=== PATIENT | female | born 1980 | race Caucasian/White ===

== ENCOUNTER 2020-06-20 11:35 | Outpatient (REF) | payer OTHER, SELFPAY | END 2020-06-20 11:36 | disposition home or self-care (01) | LOC: HO.LNP 11:35 | PROVIDERS: Visit Provider Hospitalist | DX: R30.0 Dysuria (principal) | CPT/HCPCS: 87086; 87088; 87186 ==

== ENCOUNTER → 2020-06-27 10:41 | Outpatient (BNVA) | payer OTHER, SELFPAY | PROVIDERS: PCP Internal Medicine; Visit Provider Nurse Practitioner ==

== ENCOUNTER 2020-08-15 10:37 | Outpatient (REF) | payer OTHER, SELFPAY ==
[2020-08-15 11:58] LABS: COVID-19 Test Negative (Negative); IDNOW Serial# 55D5AD1C
== END 2020-08-15 10:38 | disposition home or self-care (01) ==
LOC: HO.LAB 10:37
PROVIDERS: Visit Provider Internal Medicine
DX: Z20.822 Contact with and (suspected) exposure to COVID-19 (principal)
CPT/HCPCS: 36415; 87635; C9803

== ENCOUNTER 2021-01-19 16:31 | Outpatient (REF) | payer OTHER, SELFPAY | END 2021-01-19 16:32 | disposition home or self-care (01) | LOC: HO.LNP 16:31 | PROVIDERS: Visit Provider Internal Medicine | DX: Z20.822 Contact with and (suspected) exposure to COVID-19 (principal); J06.9 Acute upper respiratory infection, unspecified | CPT/HCPCS: U0003; U0005 ==

== ENCOUNTER 2021-06-02 14:21 | Outpatient (REF) | payer OTHER, SELFPAY ==
[2021-06-05 10:46] LABS: HPV mRNA E6/E7 rflx Not Detected (Not Detected)
== END 2021-06-02 14:22 | disposition home or self-care (01) ==
LOC: HO.LNP 14:21
PROVIDERS: Visit Provider Internal Medicine
DX: Z12.4 Encounter for screening for malignant neoplasm of cervix (principal); Z11.51 Encounter for screening for human papillomavirus (HPV)
CPT/HCPCS: 87624; 88142

== ENCOUNTER 2021-06-29 09:01 | Outpatient (REF) | payer OTHER, SELFPAY ==
[2021-06-29 11:24] LABS: MANUAL DIFF FLAG NO
[2021-06-29 11:33] LABS: Basophils Percent Auto 0.5 % (0-2); Eosinophils Absolute Auto 0.2 X10*3/uL (0.0-0.4); Hematocrit 41.5 % (37.0-47.0); Hemoglobin 14.4 g/dl (12.0-16.0); Imm Gran Abs Auto 0.01 X10*3/uL (0.00-0.03); Imm Gran Pct Auto 0.2 % (0.0-0.4); Lymphocytes Absolute Auto 1.8 X10*3/uL (1.2-4.9); Lymphocytes Percent Auto 28.8 % (20-40); Mean Corpuscular HGB Conc 34.7 g/dl (31.0-35.0); Mean Corpuscular Hemoglobin 31.9 pg (27.0-33.0); Mean Corpuscular Volume 91.8 fL (80.0-98.0); Mean Platelet Volume 10.2 fL (9.4-12.3); Monocytes Absolute Auto 0.4 X10*3/uL (0.1-1.2); Monocytes Percent Auto 6.7 % (2-11); Neutrophils Absolute Auto 3.8 x10*3/uL (2.0-8.3); Neutrophils Percent Auto 60.8 % (45-73); Platelet Count 271 X10*3/uL (160-400); Red Blood Count 4.52 X10*6/uL (4.20-5.50); Red Cell Distribution Width 12.1 % (11.0-16.0); White Blood Count 6.2 X10*3/uL (4.8-10.8)
[2021-06-29 12:15] LABS: TSH reflex Free T4 2.62 uIU/mL (0.32-4.0); Vitamin D 25-OH Total 28.2 ng/mL (>30)
[2021-06-29 12:19] LABS: Alanine Aminotransferase 14 U/L (0-31); Albumin Level 4.4 g/dL (3.5-5.0); Alkaline Phosphatase 55 U/L (39-117); Anion Gap 13 (12-20); Aspartate Amino Transferase 16 U/L (5-31); Bilirubin Total 0.6 mg/dL (0.0-1.0); Blood Urea Nitrogen 11 mg/dL (9-16); Calcium 9.6 mg/dL (8.4-10.2); Carbon Dioxide 26 mmol/L (22-29); Chloride 106 mmol/L (96-108); Cholesterol 199 mg/dL; Estimated Glomerular Filt Rate > 60; Glucose Fasting 87 mg/dL (60-99); HDL Cholesterol 53 mg/dL; LDL Cholesterol Calculated 123 mg/dl; Potassium 4.1 mmol/L (3.3-5.1); Sodium 141 mmol/L (135-145); Total Protein 7.3 g/dL (6.5-8.0); Triglycerides 117 mg/dL
[2021-06-29 13:24] LABS: HCG Quantitative < 2 mIU/mL
== END 2021-06-29 09:02 | disposition home or self-care (01) ==
LOC: HO.LAB 09:01
PROVIDERS: PCP Internal Medicine; Visit Provider Internal Medicine
DX: Z00.01 Encounter for general adult medical examination with abnormal findings (principal); E66.9 Obesity, unspecified; N92.6 Irregular menstruation, unspecified
CPT/HCPCS: 36415; 80053; 80061; 82306; 84443; 84702; 85025

== ENCOUNTER → 2021-08-25 07:48 | Outpatient (BNVA) | payer OTHER, SELFPAY | PROVIDERS: PCP Internal Medicine; Visit Provider Nurse Practitioner | DX: Z01.818 Encounter for other preprocedural examination (principal); Z83.71 Family history of colonic polyps | CPT/HCPCS: 99202 ==

== ENCOUNTER 2021-12-22 08:22 | Outpatient (REF) | payer OTHER, SELFPAY ==
--- NOTE | ~2021-12-22 | MM_ITS ---
EXAMINATION: MM SCREENING DIGITAL BREAST TOMOSYNTHESIS, BILATERAL CLINICAL INFORMATION: Screening. Asymptomatic. The lifetime risk of breast cancer based on the Tyrer-Cuzick Model is 12%. COMPARISON: Mammography: None TECHNIQUE: Digital breast tomosynthesis is performed in both the craniocaudal and mediolateral oblique views along with computer-aided detection (CAD). Synthesized 2D images are generated from the tomosynthesis. FINDINGS: The breasts are heterogeneously dense, which may obscure small masses (ACR BI-RADS breast composition Category c). There are no significant masses, abnormal calcifications, or other abnormalities. There is a region of density superior aspect on mediolateral oblique left breast but which is seen to represent superimposition of fibroglandular tissue on mechelle symphysis views. MM/MM tomosynthesis screening BI IMPRESSION: No specific findings to suggest malignancy. ASSESSMENT: BI-RADS 1: Negative RECOMMENDATION: Routine annual mammography screening. This patient's information was entered into a reminder system with a target due date for their next mammogram.
== END 2021-12-22 08:23 | disposition home or self-care (01) ==
LOC: HO.MAMMO 08:22
PROVIDERS: PCP Internal Medicine; Visit Provider Internal Medicine
DX: Z12.31 Encounter for screening mammogram for malignant neoplasm of breast (principal)
CPT/HCPCS: 77063; 77067

== ENCOUNTER 2022-05-17 18:09 | Outpatient (REF) | payer OTHER, SELFPAY ==
[2022-05-17 18:52] LABS: Influenza A PCR NEGATIVE (Negative); Influenza B PCR NEGATIVE (Negative); Resp Syncy Virus RNA Qual PCR NEGATIVE (Negative); SARS COV2 PCR INHOUSE NEGATIVE (Negative)
== END 2022-05-17 18:10 | disposition home or self-care (01) ==
LOC: HO.LNP 18:09
PROVIDERS: Visit Provider Internal Medicine
DX: R09.89 Other specified symptoms and signs involving the circulatory and respiratory systems (principal); Z20.822 Contact with and (suspected) exposure to COVID-19
CPT/HCPCS: 0241U

== ENCOUNTER 2022-08-16 21:08 | Emergency (ER) | payer OTHER, SELFPAY ==
[2022-08-16 21:23] VITALS: BP 152/68; PULSE 70; RESP 18; TEMP 36.8; O2SAT 98; BMI 34.5
[2022-08-16 21:40] VITALS: BP 132/63; PULSE 67; RESP 16; TEMP 36.7; O2SAT 98
--- NOTE | 2022-08-16 21:46 | PC.NURSE ---
Patent is alert and oriented x3. She is able to make her needs known. Patient complaints of frontal/occipital headache that started this morning. Patient describes pain as sharp, pressure and rates it 7-10/10 on 01-10 pain scale. Patient noticed redness in her both eyes for approximately 6-7 weeks. Patient reports occasional dizziness and nausea. VSS. Call terry placed within patient's reach. Light dimmed in patient's room to promote comfort. Patient is awaiting o be seen by ED provider.
[2022-08-16 22:04] VITALS: BP 119/97; PULSE 65; RESP 12; TEMP 36.8; O2SAT 96
--- NOTE | 2022-08-16 22:17 | ED_ITS ---
HPI - Headache General Chief Complaint: Headache Stated Complaint: red eyes/headache Time Seen by Provider: 08/16/22 22:07 Source: patient Mode of arrival: ambulatory Limitations: no limitations History of Present Illness HPI Narrative: Patient wear contact lenses noticed for last 3 weeks redness of the eyes with slight burning feeling no eye discharge. Also complaining of headache which is mild in the normal vision ferrari no fever or chills had last on pelvic examination last year which was Related Data Previous Rx's Medication Instructions Recorded peg 3350-electrolytes 236 240 ml PO Q10M 1 day #4,000 mL 08/25/21 gram-22.74 gram-6.74 gram-5.86 gram solution (Golytely) prednisone 20 mg tablet 60 mg PO DAILY #9 tabs 05/17/22 olopatadine 0.1 % eye drops 1 drp ophthalmic (eye) BID #5 mL 08/16/22 (Pataday Twice Daily Relief) Allergies Allergy/AdvReac Type Severity Reaction Status Date / Time Sulfa (Sulfonamide Allergy Unknown INFLAMED Verified 08/16/22 21:27 Antibiotics) EYES W/ [SULFA (SULFONAMIDE EYE DROPS ANTIBIOTICS)] , eye swelling Review of Systems Review of Systems: Yes all other systems are reviewed and are negative [facility] Past Medical History Medical History Anxiety disorder Family history of familial adenomatous polyposis Family history of pancreatic cancer Obesity Surgical History History of section Family History Family History Father Hyperlipidemia HTN (hypertension) Mother Pancreatitis Adenomatous colon polyp Paternal Grandfather Hyperlipidemia HTN (hypertension) Paternal Grandmother Pancreatic cancer Sister No problems noted. Son No problems noted. Daughter No problems noted. Maternal Grandmother Adenomatous colon polyp Paternal Aunt No problems noted. Maternal Aunt Adenomatous colon polyp Social History Social History Household Members: Spouse and Children Housing: House Are you a primary primary care physician to a significant other at home: No Do you presently have visiting nurse or other home services: No Alcohol intake: current Alcohol intake frequency: holidays/special occasions only Alcohol type: wine Patient Tobacco Use Status: Never used Tobacco Smoked in Last 30 Days: No e-Cigarette/Vaping Use: Never Used Use of substances other than those prescribed or required for medical reasons: No Advance Directives: No Advance Directives Information Provided: No service: No Current occupational status: employed 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 Oriented X3. No acute distress. Eyes: PERRLA, No Nystagmus funduscopy normal, anterior chamber normal cornea normal fluorescin uptake negative slight redness of the palpebral conjunctiva bilateral no discharge IOP right eye 16 left eye 15 ENT: Pharynx normal. Oral Mucosa moist Neck: Normal inspection. Neck supple. Temporal artery nontender CVS: Normal heart rate and rhythm. Pulses normal. Respiratory: No respiratory distress. Equal air entry bilateral, no wheezing/rales/rhonchi Abdomen: Soft and nontender. Bowel sounds are present, no mass palpable, no CVA tenderness Skin: Skin warm and dry. Normal skin color. Normal skin turgor. Extremities: No lower extremity edema. No calf tenderness Neuro: Oriented X 3. No motor deficit. No sensory deficit.No cerebellar signs , cranial nerves II-XII intact Medical Decision Making Differential Diagnosis Glaucoma/conjunctivitis/migraine headache Discharge Plan Discharge Clinical Impression: Allergic conjunctivitis of both eyes Patient Disposition: Home, Self-Care Instructions: Conjunctivitis (ED) Additional Instructions: Likely have allergic conjunctivitis Eyedrops as advised Avoid using contact lenses still healed completely Prescriptions: New olopatadine [Pataday Twice Daily Relief] 0.1 % drops 1 drp ophthalmic (eye) BID Qty: 5 0RF Rx Instructions: separate doses by at least 6-8 hours No Action prednisone 20 mg tablet 60 mg PO DAILY Qty: 9 0RF peg 3350-electrolytes [Golytely] 236-22.74-6.74 -5.86 gram recon soln 240 ml PO Q10M 1 Days Qty: 4000 0RF Rx Instructions: until fecal effluent is clear; do not exceed a total volume of 2,000 mL
--- NOTE | 2022-08-16 23:13 | PC.NURSE ---
Reviewed discharge instruction with pt, pt verbalized understanding, Notified RN Rhianna.
[2022-08-16 23:14] VITALS: BP 103/57; PULSE 60
== END 2022-08-16 23:16 | disposition home or self-care (01) ==
PROVIDERS: Emergency Provider Internal Medicine; PCP Internal Medicine
DX: H10.13 Acute atopic conjunctivitis, bilateral (principal); R51.9 Headache, unspecified
CPT/HCPCS: 99283; 99284

== ENCOUNTER 2022-08-26 14:46 | Outpatient (AMB) | payer OTHER, SELFPAY ==
--- NOTE | 2022-08-26 14:55 | A.OFFPC_ITS ---
<Statement entered by Sallie Dueñas MD - 06/03/25 00:13> This note has been administratively?closed. Vital Signs 08/26/22 14:56 Height 5 ft 3 in Weight 202 lb 8 oz BMI 35.9 BP 116/68 Blood Pressure Location Rt brachial Position Sitting Pulse 79 Pulse Source Pulse Oximeter Pulse Oximetry (%) 98 Oxygen Delivery Method Room Air Intake Visit Reasons: red blood shot eyes Intake Note: Pt is here for red eyes, started 2 months ago: OD 20/15, OS 20/20, OU 20/15 with corrective lens Allergies Sulfa (Sulfonamide Antibiotics) (SULFA (SULFONAMIDE ANTIBIOTICS)) Allergy (Unknown, Verified 02/14/25 15:21) INFLAMED EYES W/ EYE DROPS , eye swelling Medication List - Last Reconciled 08/26/22 by Sallie Dueñas MD olopatadine 0.1% (Pataday Twice Daily Relief) 1 drp ophthalmic (eye) BID peg 3350-electrolytes 236-22.74-6.74 -5.86 gram (Golytely) 240 mL PO Q10M 1 day Tobacco use date assessed: 08/26/22 [facility] Medical History (Updated 02/14/25 @ 15:33 by Sallie Dueñas MD) Heterogeneously dense tissue of both breasts on mammography Obesity (BMI 35.0-39.9 without comorbidity) Family history of thyroid disease Family history of familial adenomatous polyposis Family history of pancreatic cancer Anxiety disorder Surgical History Hx of colonoscopy History of section Family History Father Hyperlipidemia HTN (hypertension) Mother Pancreatitis Adenomatous colon polyp Paternal Grandfather Hyperlipidemia HTN (hypertension) Paternal Grandmother Pancreatic cancer Sister No problems noted. Son No problems noted. Daughter No problems noted. 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 1. Little interest or pleasure in doing things: not at all 2. Feeling down, depressed, or hopeless: not at all 3. Trouble falling or staying asleep, or sleeping too much: not at all 4. Feeling tired or having little energy: not at all 5. Poor appetite or overeating: more than half the days 6. Feeling bad about yourself - or that you are a failure or have let yourself or your family down: not at all 7. Trouble concentrating on things, such as reading the newspaper or watching television: more than half the days 8. Moving or speaking so slowly that other people could have noticed. Or the opposite - being so fidgety or restless that you have been moving around a lot more than usual: not at all 9. Thoughts that you would be better off or of hurting yourself in some way: not at all Total score: 4 Source: Developed by Drs. James Rodriguez, Farheen Christine, Antoine Curran and colleagues, with an educational jorge from [employer]. Thrive Questionnaire Date Thrive assessed: 08/26/22 I am a: Patient What is your living situation today?: I have a steady place to live Within the past 12 months, did the food you bought not last and you didn't have the money to get more?: Never true Within the past 12 months, did you worry whether your food would run out before you got money to buy more?: Never true Do you have trouble paying for medicines?: No Do you have trouble getting transportation to medical appointments?: No Do you have trouble paying your heating and electricity bill?: No Do you have trouble taking care of your child, family member or friend?: No Do you have trouble with day-to-day activities such as bathing, preparing meals, shopping, managing finances, etc.?: No Are you currently unemployed and looking for a job?: No Are you interested in more education?: No AUDIT C Alcohol Use Questionnaire (AUDIT-C) 1. How often do you have a drink containing alcohol?: Monthly or less 2. How many drinks containing alcohol do you have on a typical day when you are drinking?: 1 or 2 3. How often do you have six or more drinks on one occasion?: Never Total Score: 1 DUARTE-7 AMB Questionnaire DUARTE-7 Date DUARTE - 7 assessed: 08/26/22 Feeling nervous, anxious, or on edge: 0 = Not at all Not being able to stop or control worryin = Not at all Worrying too much about different things: 0 = Not at all Trouble relaxin = Not at all Being so restless that it is hard to sit still: 0 = Not at all Becoming easily annoyed or irritable: 0 = Not at all Feeling afraid as if something awful might happen: 0 = Not at all Total DUARTE-7 score (0-4 normal; 5-9 mild; 10-14 moderate; 15-21 severe): 0 Source: Developed by Drs. James Rodriguez, Farheen Christine, Antoine Curran and colleagues, with an educational jorge from [employer]. Physical exam (Primary Care) Vital Signs: Last Vital Signs Pulse 79 08/26/22 14:56 BP 116/68 08/26/22 14:56 Pulse Ox 98 08/26/22 14:56 Oxygen Delivery Method Room Air 08/26/22 14:56 BMI result Body Mass Index 35.9 Tobacco/Smoking Status: Tobacco use Status Tobacco use date assessed 08/26/22 08/26/22 15:01 Patient Tobacco Use Status Never used Tobacco 08/26/22 15:01 e-Cigarette/Vaping Use Never Used 08/26/22 15:01 PHQ-9: PHQ-9 Score PHQ-9: Total score 4 08/26/22 15:35 Thrive Assessment: Date of Thrive Assessment Date Thrive assessed 08/26/22 08/26/22 15:01 Coding Level of Care Code Admin Sign Off/No Billing Diagnoses Redness of eye H57.89 Family history of thyroid disease Z83.49
[2022-08-26 14:56] VITALS: BP 116/68; PULSE 79; O2SAT 98; BMI 35.9
== END 2022-08-26 15:57 | disposition home or self-care (01) ==
LOC: HO.HMGC 14:46
PROVIDERS: PCP Internal Medicine; Visit Provider Internal Medicine
DX: H57.89 Other specified disorders of eye and adnexa (principal); Z83.49 Family history of other endocrine, nutritional and metabolic diseases
CPT/HCPCS: 99499

== ENCOUNTER 2022-10-29 08:49 | Day surgery (SDC) | payer OTHER, SELFPAY ==
[2022-10-27 09:53] VITALS: BMI 35.9
--- NOTE | 2022-10-28 10:22 | HO.ANESPROP2 ---
HPI - Anesthesia Eval Consult details Narrative: 41yo F for Colonoscopy PMFSH Active Problems Active Problems: All Active Problems (Updated 08/26/22 @ 15:34 by Sallie Dueñas MD) Redness of eye (Acute) Family history of thyroid disease (Acute) Uvulitis (Acute) Family history of familial adenomatous polyposis (Acute) Family history of pancreatic cancer (Acute) Obesity (Acute) Past Medical History Medical History Anxiety disorder Family history of familial adenomatous polyposis Family history of pancreatic cancer Family history of thyroid disease Obesity Redness of eye Family History Family History Father Hyperlipidemia HTN (hypertension) Mother Pancreatitis Adenomatous colon polyp Paternal Grandfather Hyperlipidemia HTN (hypertension) Paternal Grandmother Pancreatic cancer Sister No problems noted. Son No problems noted. Daughter No problems noted. Maternal Grandmother Adenomatous colon polyp Paternal Aunt No problems noted. 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
--- NOTE | 2022-10-29 09:04 | HO.ANESPROP2 ---
[facility] Active Problems Active Problems: All Active Problems (Updated 08/26/22 @ 15:34 by Sallie Dueñas MD) Redness of eye (Acute) Family history of thyroid disease (Acute) Uvulitis (Acute) Family history of familial adenomatous polyposis (Acute) Family history of pancreatic cancer (Acute) Obesity (Acute) Past Medical History Medical History Anxiety disorder Family history of familial adenomatous polyposis Family history of pancreatic cancer Family history of thyroid disease Obesity Redness of eye Family History Family History Father Hyperlipidemia HTN (hypertension) Mother Pancreatitis Adenomatous colon polyp Paternal Grandfather Hyperlipidemia HTN (hypertension) Paternal Grandmother Pancreatic cancer Sister No problems noted. Son No problems noted. Daughter No problems noted. Maternal Grandmother Adenomatous colon polyp Paternal Aunt No problems noted. Maternal Aunt Adenomatous colon polyp Family history of problems with anesthesia: No Surgical History Surgical History History of section History of Problems with Anesthesia: No Social History Social History Household Members: Spouse and Children Housing: House Are you a primary medication care manager to a significant other at home: No Do you presently have visiting nurse or other home services: No Alcohol intake: current Alcohol intake frequency: holidays/special occasions only Alcohol type: wine Patient Tobacco Use Status: Never used Tobacco e-Cigarette/Vaping Use: Never Used service: No Current occupational status: employed 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 Cognitive needs: No Hearing needs: No Vision needs: Yes Meds Allergies Allergy/AdvReac Type Severity Reaction Status Date / Time Sulfa (Sulfonamide Allergy Unknown INFLAMED Verified 08/26/22 15:14 Antibiotics) EYES W/ [SULFA (SULFONAMIDE EYE DROPS ANTIBIOTICS)] , eye swelling Exam Exam Date and Time: October 29, 2022 0904 Height,Weight and Vital Signs: Height 5 ft 3 in Weight 91.852 kg Airway Mallampati Class: II TM Dist: >3cm Neck ROM: Full Lungs: CTA Assessment and Plan Final Anesthetic Review Family History of Problems with Anesthesia: No History of Problems with Anesthesia: No NPO: Yes Final Preanesthetic Review: Meds/Allgs Chart Reviewed, Consent Obtained/Reviewed and Anes Risks/Benef Reviewed Patient Risk: Low Procedure Risk: Low Anesthetic Plan Anesthetic Plan: MAC: Disposition: Standard PACU
[2022-10-29 09:34] VITALS: BP 134/77; PULSE 71; RESP 16; TEMP 36.1; O2SAT 98; BMI 35.8
[2022-10-29 09:36] VITALS: BMI 35.8
[2022-10-29 09:39] LABS: UPreg QC Valid YES; Urine Pregnancy NEGATIVE (NEGATIVE)
--- NOTE | 2022-10-29 09:43 | MHC.SHP ---
Pre-Procedural Eval Section A Date of Service: 10/29/22 The patient is an INPATIENT: No The History & Physical has been completed within 30 days and I have reviewed it.: No Section B Chief Complaint: screening, family hx of colon polyps Relevant Family History (Specify if Yes): Yes Relevant Social History: None Present Medications: see Short Stay Collaborative assessment Medical History: Significant History (Anxiety disorder Family history of familial adenomatous polyposis Family history of pancreatic cancer Obesity) History of Previous Operations: Relevant previous surgery/procedure and date(s) (hx of C section) Allergies: Allergies Allergy/AdvReac Type Severity Reaction Status Date / Time Sulfa (Sulfonamide Allergy Unknown INFLAMED Verified 08/26/22 15:14 Antibiotics) EYES W/ [SULFA (SULFONAMIDE EYE DROPS ANTIBIOTICS)] , eye swelling Review of Systems Sugical H&P ROS: Negative: Constitution, Cardiovascular, Respiratory and Gastrointestinal Exam Surgical H&P Exam: Normal: Heart, Normal: Lungs, Normal: Extremities and Normal: Abdomen Plan Diagnosis/Plan: Unchanged I have reviewed the history and physical and performed a pertinent physical examination on my patient. No changes have occurred unless specified. Time Spent With Patient Time: Total time managing care of this patient today ____ minutes.
--- NOTE | 2022-10-29 09:47 | W.PM.OPN ---
Operative Note Operative Note Date of Service: 10/29/22 Narrative: COLONOSCOPY TILL CECUM WITH BIOPSIES Pre-op diagnosis: Colon cancer screening, family history of colon polyps Post-op diagnosis:? diverticulosis, hemorrhoids, Colon nodules. Endoscopist:? Hesham Etienne MD Anesthesia:?MAC Consent: Indications for the procedure and potential complications of bleeding, perforation, reaction to medications and missed diagnosis were discussed with the patient and informed consent was obtained. Instrument: Olympus PCF H 190 L variable stiffness pediatric colonoscope Monitoring: Vital signs and clinical assessment, intermittent blood pressure monitoring, continuous EKG monitoring, Pulse oximetry and Carbon Dioxide monitoring were done throughout the procedure. Please see anesthesia flowsheet. Colon withdrawl time was 13 minutes. Procedure: The patient was placed in the left lateral decubitis position and pre-procedure medications were administered. After a digital rectal examination of the ano-rectum, the video colonoscope was inserted into the rectum and advanced through the colon to the cecum. The colonoscope was slowly withdrawn in a retrograde panoramic fashion and the colon mucosa was carefully examined including a retroflexed view of the rectum. Findings and interventions are described below. Procedure Difficulty: Without difficulty Findings: Terminal Ileum: Not evaluated Cecum: Normal Ascending Colon: Two 7-8 mm benign appearing nodules with central calcifications - biopsied. Transverse Colon: A 7-8 mm nodule with cetral calcification - biopsied. Descending Colon: Normal Sigmoid Colon: Moderate diverticulosis Rectum: Normal Ano-rectum: Small internal hemorrhoids Colon preparation: Good after some irrigation Impression and Post Procedure Diagnosis: Colonoscopy Findings: No polyps were detected Three small benign appearing nodules with central calcifications - biopsied Moderate diverticulosis seen in the sigmoid colon Small hemorrhoids on retroflexed exam. Plan: Await pathology results Patient has an appointment on 11/10/22 in the [facility] with Kalli Lang NP. Repeat Colonoscopy interval based on path results - in 5 years due to family history of colon polyps. Above findings were reviewed with the patient and diverticulosis handouts was given in the discharge area
[2022-10-29] MEDS: Lactated Ringers 1,000 ML 100 ML IVCONT (09:58)
[2022-10-29 10:30] VITALS: BP 92/51; PULSE 71; RESP 16; TEMP 36.2; O2SAT 95
[2022-10-29 10:44] VITALS: BP 109/55; PULSE 74; RESP 16; O2SAT 99
[2022-10-29 10:59] VITALS: BP 126/73; PULSE 71; RESP 20; TEMP 37.2; O2SAT 98
--- NOTE | 2022-10-29 13:07 | HO.POSTANES ---
Post Anesthesia Evaluation Post Anesthesia Evaluation Date of Service: 10/29/22 Vital Signs: Vital Signs Temp Pulse Resp BP Pulse Ox O2 Del Method 10/29/22 10:59 99.0 F 71 20 126/73 98 Room Air 10/29/22 10:44 74 16 109/55 L 99 Room Air 10/29/22 10:30 97.2 F 71 16 92/51 L 95 Room Air 10/29/22 09:34 97 F 71 16 134/77 98 Room Air Anesthesia: Monitored Mental Status: Awake Pain Control: Satisfactory Nausea/Vomiting: None Hydration: Adequate Anesthesia-Related Issues: No Anes. Related Issues
== END 2022-10-29 11:15 | disposition home or self-care (01) ==
PROVIDERS: Nurse Practitioner; PCP Internal Medicine; Visit Provider Internal Medicine Gastroenterology
PROC: 0DJD8ZZ Inspection of Lower Intestinal Tract, Via Natural or Artificial Opening Endoscopic (ICD-10-PCS; CPT 45378; principal; 2022-10-29 09:50)
DX: Z12.11 Encounter for screening for malignant neoplasm of colon (principal); Z83.71 Family history of colonic polyps; K63.89 Other specified diseases of intestine; K57.30 Diverticulosis of large intestine without perforation or abscess without bleeding; K64.8 Other hemorrhoids; E66.9 Obesity, unspecified; Z68.34 Body mass index [BMI] 34.0-34.9, adult; Z80.0 Family history of malignant neoplasm of digestive organs; F41.1 Generalized anxiety disorder; Z88.2 Allergy status to sulfonamides
CPT/HCPCS: 45380; 81025; 88305

== ENCOUNTER 2022-11-10 08:21 | Outpatient (AMB) | payer OTHER, SELFPAY ==
--- NOTE | 2022-11-10 08:20 | A.OFFVIS_ITS ---
Intake Vital Signs 11/10/22 08:24 Height 5 ft 3 in Weight 201 lb 15.095 oz BMI 35.8 Blood Pressure Location Lt brachial Position Sitting Intake Visit Reasons: S/p colo-[place] Intake Note: Ann presents in office as a est.patient for a post-op for COLO PT CC: pt reports having no concerns pt denies any other GI Issues Child Caregiver Required: No Accompanied by: Self / Same As Patient Allergies Sulfa (Sulfonamide Antibiotics) [SULFA (SULFONAMIDE ANTIBIOTICS)] Allergy (Unknown, Verified 11/10/22 08:25) INFLAMED EYES W/ EYE DROPS , eye swelling HPI S/p colo-[place] HPI Details Assessment & Plan (1) Family history of familial adenomatous polyposis: ?Code(s): Z83.71 - Family history of colonic polyps ?Plan: This is her first colonoscopy. She has an intermittent feels a fullness in the LLQ no other problems and not upper Gi problems.? This prompts Education about the sigmoid colon and what could be causing this including so Education about diverticulitis and alarm signs and symptoms that would cause her to be concerned about this.? Otherwise this is probably just normal physiology with things backing up a little bit around the curve the nature of the sigmoid. She denies prior problems with anesthesia or sedation No ID problems. She denies any cardiac or respiratory problems. She has a family history mother and maternal aunts having polyps prior to age 40. ? ? ? Medications: New peg 3350-electroly miguelina [id number] -5.86 gram (Golyt erick) ?? until feca l effluent is annie r; do not exceed a total volume of 2 ,000 mL 240 mL? PO Q10M 1 day 4,000 mL 0RF Z12.11 - Encounter for screening for malignant neoplas m of colon ? COLONOSCOPY 10/29/22 Findings: Terminal Ileum: Not evaluated Cecum:? Normal Ascending Colon:? Two 7-8 mm benign appearing nodules with central calcifications - biopsied. Transverse Colon:? A 7-8 mm nodule with cetral calcification - biopsied. Descending Colon:? Normal Sigmoid Colon:? Moderate diverticulosis Rectum:? Normal Ano-rectum:? Small internal hemorrhoids Colon preparation:? Good after some irrigation Impression and Post Procedure Diagnosis: Colonoscopy Findings: No polyps were detected Three small benign appearing nodules with central calcifications - biopsied Moderate diverticulosis seen in the sigmoid colon Small hemorrhoids on retroflexed exam. Plan: Await pathology results Patient has an appointment on 11/10/22 in the GI Clinic with? Kalli Lang NP. Repeat Colonoscopy interval based on path results - in 5 years due to family history of colon polyps. BIOPSY Received: 10/29/22 Diagnosis A.? Colon, ascending, nodules, biopsy:? Colonic mucosa with lymphoid aggregates and submucosal adipose tissue; negative for adenomatous dysplasia. B.? Colon, transverse, nodule, biopsy:? Colonic mucosa with no specific change; negative for adenomatous dysplasia.? TODAY'S VISIT The procedure should be repeated in 5 years due to the family history of colon cancer. The procedure was well tolerated. The results were explained and the patient is agreeable to the follow-up interval as stated. The bowel pattern has returned to normal. Education was provided to tell any 1st degree relatives about their findings to be sure that they are screened by age 45. Educated that they will be put on a recall list when it is time for their repeat scope but should they move out of state or away from the hospital they will need to remember along with their primary to repeat the procedure in a timely fashion to avoid any adverse complications. [facility] Medical History Anxiety disorder Family history of familial adenomatous polyposis Family history of pancreatic cancer Family history of thyroid disease Obesity Redness of eye Surgical History History of section Hx of colonoscopy Family History Father Hyperlipidemia HTN (hypertension) Mother Pancreatitis Adenomatous colon polyp Paternal Grandfather Hyperlipidemia HTN (hypertension) Paternal Grandmother Pancreatic cancer Sister No problems noted. Son No problems noted. Daughter No problems noted. Maternal Grandmother Adenomatous colon polyp Paternal Aunt No problems noted. 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 Cognitive needs: No Hearing needs: No Vision needs: Yes Review of Systems Const Denies fatigue, Denies fever(s), Denies night sweats, Denies poor appetite and Denies weight loss Eyes Details: glasses Reports requires corrective lenses ENT Reports Normal hearing present, Denies dental pain, Denies dysphagia, Denies hearing loss, Denies mouth pain, Denies odynophagia, Denies throat swelling, Denies tongue swelling and Reports other (Dentition adequate) Card Reports no additional complaints Resp Reports no additional complaints GI Denies abdominal pain, Denies melena, Denies bloating, Denies hematochezia, Denies constipation, Denies GI cramping, Denies dysphagia, Denies excessive flatus, Denies early satiety, Denies heartburn, Denies diarrhea, Denies nausea, Denies odynophagia, Denies vomiting and Denies hematemesis Skin/Breast Denies pruritus, Denies lesions, Denies rash and Denies jaundice Neuro Reports Normal hearing present and Denies Abnormal speech present Endo Denies fatigue Aller/Immun Denies throat swelling and Denies tongue swelling Physical Exam Vital Signs: BMI result Body Mass Index 35.8 Const General: cooperative, no acute distress, well developed and well groomed Nutritional Appearance: well nourished and overweight Orientation/consciousness: oriented to person, oriented to place and oriented to time Limitations: No language barrier HEENT Head: Yes normocephalic and Yes atraumatic Eyes General: appearance normal, both eyes and all related structures Pupils: Equal, round and reactive pupils present Neck Neck: Yes normal visual inspection and Yes no lymphadenopathy Thyroid: Thyroid normal Resp Effort & Inspection: normal respiratory effort and able to speak in complete sentences Auscultation: clear to auscultation bilaterally Cardio Rate: regular rate Rhythm: regular rhythm Heart sounds: Normal, physiologic split S2 sound present Peripheral pulses: radial pulses present and posterior tibial pulses present GI Inspection: No distended and No Abdominal panniculus present Palpation (GI): Soft to palpation, nontender, no guarding, not rigid and No hepatosplenomegaly present Percussion: Yes normal to percussion Auscultation: normal bowel sounds Rectal Exam - Female: deferred Skin General skin exam: no rashes or lesions noted, turgor normal, skin not dry, no jaundice, No spider nevi and no striae Rashes: no rashes Nails: normal Neuro General: oriented to person, oriented to place and oriented to time Cranial nerves: Yes Equal, round and reactive pupils present and Yes Normal hearing present Speech: No Abnormal speech present Extrem General: Yes normal to inspection, No clubbing, No cyanosis and No edema Psych Appearance: grossly normal and well kempt Mental Status: mental status grossly normal Speech and movement: Normal speech and movement present Affect: normal affect Attitude: cooperative Thought process: Normal thought process present and not confabulating Thought content: Normal thought content present Insight: Good insight present (Psych) Judgement: Good judgement present (Psych) Assessment & Plan Assessment & Plan (1) Family history of familial adenomatous polyposis: Comment: 10/29/2022= negative scope repeat in 5 years Code(s): Z83.71 - Family history of colonic polyps Plan: The procedure should be repeated in 5 years due to the family history of colon cancer. The procedure was well tolerated. The results were explained and the patient is agreeable to the follow-up interval as stated. The bowel pattern has returned to normal. Education was provided to tell any 1st degree relatives about their findings to be sure that they are screened by age 45. Educated that they will be put on a recall list when it is time for their repeat scope but should they move out of state or away from the hospital they will need to remember along with their primary to repeat the procedure in a timely fashion to avoid any adverse complications Coding Level of Care Code Est Pt Level 3 (14531) Diagnoses Family history of familial adenomatous polyposis Z83.71
[2022-11-10 08:24] VITALS: BMI 35.8
== END 2022-11-10 08:41 | disposition home or self-care (01) ==
PROVIDERS: PCP Internal Medicine; Visit Provider Nurse Practitioner
DX: Z83.71 Family history of colonic polyps (principal)
CPT/HCPCS: 99213

== ENCOUNTER → 2022-11-10 08:21 | Outpatient (BNVA) | payer OTHER, SELFPAY | PROVIDERS: PCP Internal Medicine; Visit Provider Nurse Practitioner | DX: Z83.71 Family history of colonic polyps (principal) | CPT/HCPCS: 99212 ==

== ENCOUNTER 2023-02-08 12:43 | Outpatient (AMB) | payer OTHER, SELFPAY ==
[2023-02-08 12:43] VITALS: BP 120/70; PULSE 73; O2SAT 97; BMI 35.8
--- NOTE | 2023-02-08 12:43 | MHC.PC.OV ---
Vital Signs 02/08/23 12:43 Height 5 ft 3 in Weight 202 lb BMI 35.8 BP 120/70 Blood Pressure Location Rt brachial Position Sitting Pulse 73 Pulse Source Pulse Oximeter Pulse Oximetry (%) 97 Oxygen Delivery Method Room Air Oxygen Flow Rate 120 Intake Visit Reasons: Annual PE Intake Note: patient is here today for her annual PE Allergies Sulfa (Sulfonamide Antibiotics) [SULFA (SULFONAMIDE ANTIBIOTICS)] Allergy (Unknown, Verified 02/08/23 13:06) INFLAMED EYES W/ EYE DROPS , eye swelling Medication List - Last Reconciled 02/08/23 by Sallie Dueñas MD No Known Home Meds Tobacco use date assessed: 02/08/23 Dental Screening Dental Screen Date: 02/08/23 Did you have a dental visit in the last 12 months?: Yes Did you have a dental problem in the last 6 months where you did not have access to dental care?: No Was dental information given to patient?: Patient has dentist HPI Annual PE HPI Details 42-year-old lady here today for physical exam. She had recent screening colonoscopy done due to positive family history of pancreatic and colon cancer, with negative findings, repeat to be done again in [address] Etienne . Due again for screening mammogram, last done November 2021, and needs a repeat cervical cancer screening as last 1 done a year ago showed no endocervical cells. She does not want to get a COVID booster, but would like to get her flu shot today [facility] Medical History (Updated 02/08/23 @ 13:38 by Sallie Dueñas MD) Obesity (BMI 35.0-39.9 without comorbidity) Family history of thyroid disease Family history of familial adenomatous polyposis Family history of pancreatic cancer Anxiety disorder Surgical History Hx of colonoscopy History of section Family History (Updated 02/08/23 @ 13:41 by Sallie Dueñas MD) Father Hyperlipidemia HTN (hypertension) Mother Pancreatitis Adenomatous colon polyp Paternal Grandfather Hyperlipidemia HTN (hypertension) Paternal Grandmother Pancreatic cancer Sister No problems noted. Son No problems noted. Daughter No problems noted. 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 How often do you have a drink containing alcohol?: Monthly or less 2. How many drinks containing alcohol do you have on a typical day when you are drinking?: 1 or 2 Total Score: 1 DUARTE-7 AMB Questionnaire DUARTE-7 Date DUARTE - 7 assessed: 08/26/22 Source: Developed by Drs. James Rodriguez, Farheen Christine, Antoine Curran and colleagues, with an educational jorge from [employer]. Review of Systems Const Denies body aches, Denies fatigue, Denies fever(s), Denies headache(s) and Denies weakness Eyes Details: Goes to [employer] [facility] Denies change in vision ENT Denies dizziness, Denies headache(s), Denies nasal congestion, Denies nasal discharge and Denies sore throat Card Denies chest pain, Denies lightheadedness, Denies palpitations and Denies dyspnea Resp Denies chest congestion, Denies cough, Denies dyspnea and Denies wheezing GI Denies abdominal pain, Denies change in bowel habits and Denies heartburn Denies urinary frequency, Denies dysuria and Denies urinary urgency Musc Reports no additional complaints Skin/Breast Denies lesions and Denies rash Neuro Denies dizziness, Denies headache(s) and Denies weakness Psych Reports as per HPI Endo Denies fatigue, Denies polydipsia, Denies polyuria and Denies palpitations Andre/Lymph Denies easy bruising Aller/Immun Denies seasonal rhinorrhea and Denies wheezing Physical exam (Primary Care) Vital Signs: Last Vital Signs Pulse 73 02/08/23 12:43 BP 120/70 02/08/23 12:43 Pulse Ox 97 02/08/23 12:43 Oxygen Delivery Method Room Air 02/08/23 12:43 Oxygen Flow Rate 120 02/08/23 12:43 BMI result Body Mass Index 35.8 Tobacco/Smoking Status: Tobacco use Status Tobacco use date assessed 02/08/23 02/08/23 12:45 Patient Tobacco Use Status Never used Tobacco 02/08/23 12:45 e-Cigarette/Vaping Use Never Used 02/08/23 12:45 Thrive Assessment: Date of Thrive Assessment Date Thrive assessed 08/26/22 02/08/23 12:45 Const Other: Alert oriented x3, slight respiratory distress noted him ambulatory normal gait Nutritional Appearance: obese Orientation/consciousness: patient oriented x3 HENMT Other: Normocephalic atraumatic Ears: hearing grossly normal bilaterally, external ears normal, TM's normal bilaterally and EAC's normal General nose exam: Normal external nose present and No nasal discharge present Face and sinus: Yes face symmetric Mouth: Normal oral and palatal mucosa present and moist mucous membranes Eyes General: appearance normal, both eyes and all related structures Neck Neck: Yes full ROM, Yes no lymphadenopathy and Yes supple Thyroid: Thyroid normal Chest Chest palpation & inspection: normal inspection of the chest Breast/axilla palpation: normal palpation of the breasts Resp Effort & Inspection: normal respiratory effort and able to speak in complete sentences Auscultation: clear to auscultation bilaterally Cardio Other: S1-S2 present regular rate and rhythm GI Inspection: Yes obesity Palpation (GI): Soft to palpation, nontender, no guarding and no masses Auscultation: normal bowel sounds General: Yes bladder normal to palpation and No no CVA tenderness External Female Exam: normal external appearance and normal appearance of the urethra Speculum Exam - Vagina: normal appearance of the vagina, normal palpation and normal vaginal discharge Speculum Exam - Cervix: normal appearance of the cervix and normal palpation Bimanual exam- vagina & uterus: normal palpation, uterine size normal, bladder normal to palpation, normal palpation and non-tender Bimanual Exam- Adnexa, other: normal adnexae, no masses and No adnexal tenderness Back/Spine/Pelvis Back: No no CVA tenderness Skin General skin exam: no rashes or lesions noted Neuro General: patient oriented x3, gait normal, tone normal, moves all extremities, Normal light touch and pain sensation, no focal motor deficits and CN's II-XI intact bilaterally Extrem General: Yes full ROM, Yes no joint enlargement, Yes no clubbing, cyanosis or edema, Yes no pedal edema, Yes no calf tenderness and Yes normal gait Psych Appearance: grossly normal and well kempt Mental Status: mental status grossly normal Speech and movement: Normal speech and movement present Affect: normal affect Attitude: cooperative Thought process: Normal thought process present Thought content: Normal thought content present Assessment and Plan Assessment & Plan (1) Annual visit for general adult medical examination with abnormal findings: Code(s): Z00.01 - Encounter for general adult medical examination with abnormal findings Plan: Will check appropriate labs. Continue with regular dental visit every 6 months and regular eye exams, at least every 2 years, goes to [facility]. Take adequate calcium in diet and vitamin-D 3 at 2000 IU per cap once a day, in addition to weight-bearing exercises to help maintain good muscle tone and weight control. Instructed to do self-breast exam, and get yearly mammogram, scheduled, she had a screening colonoscopy done earlier this year due to positive family history, with negative findings, repeat again in 2027. Vaccine given today, does not want to get COVID booster, up-to-date with Tdap (2) Cervical cancer screening: Code(s): Z12.4 - Encounter for screening for malignant neoplasm of cervix Plan: Pap smear done today (3) Family history of thyroid disease: Code(s): Z83.49 - Family history of other endocrine, nutritional and metabolic diseases Plan: Will check TSH with free T4 (4) Family history of familial adenomatous polyposis: Comment: 10/29/2022= negative scope repeat in 5 years Code(s): Z83.71 - Family history of colonic polyps Plan: Up-to-date already with her screening colonoscopy (5) Obesity (BMI 35.0-39.9 without comorbidity): Code(s): E66.9 - Obesity, unspecified Plan: Discussed need to increase activity and weight reduction. Recommended focusing on improving health instead of dieting. Mediterranean diet is a healthy diet that helps, limit food high in fat, sugar, and calories. Eat slowly, pay attention to portion sizes, plan your meals ahead of time, start regular physical activity, at least 150 minutes of moderate intensity exercise, or 90 minutes per week of vigorous exercise. Keeping a food diary, tracking what you eat and your physical activity can help assess what improvements you can make. There are many health problems associated with being overweight/obese, so it is important to improve your diet and exercise. There are medications and surgical options available, but Lifestyle changes are the 1st step. Orders: Orders Pap Smear Today Z12.4 - Encounter for screening for malignant neoplasm of cervix Aspartate Amino Transferase Today E66.9 - Obesity, unspecified, Z00.01 - Encounter for general adult medical examination with abnormal findings, Z13.1 - Encounter for screening for diabetes mellitus, Z13.220 - Encounter for screening for lipoid disorders, Z83.49 - Family history of other endocrine, nutritional and metabolic diseases, Z83.71 - Family history of colonic polyps, Z86.39 - Personal history of other endocrine, nutritional and metabolic disease Alanine Aminotransferase Today E66.9 - Obesity, unspecified, Z00.01 - Encounter for general adult medical examination with abnormal findings, Z13.1 - Encounter for screening for diabetes mellitus, Z13.220 - Encounter for screening for lipoid disorders, Z83.49 - Family history of other endocrine, nutritional and metabolic diseases, Z83.71 - Family history of colonic polyps, Z86.39 - Personal history of other endocrine, nutritional and metabolic disease Vitamin D 25-OH Total Today E66.9 - Obesity, unspecified, Z00.01 - Encounter for general adult medical examination with abnormal findings, Z13.1 - Encounter for screening for diabetes mellitus, Z13.220 - Encounter for screening for lipoid disorders, Z83.49 - Family history of other endocrine, nutritional and metabolic diseases, Z83.71 - Family history of colonic polyps, Z86.39 - Personal history of other endocrine, nutritional and metabolic disease Basic Metabolic Panel Fasting Today E66.9 - Obesity, unspecified, Z00.01 - Encounter for general adult medical examination with abnormal findings, Z13.1 - Encounter for screening for diabetes mellitus, Z13.220 - Encounter for screening for lipoid disorders, Z83.49 - Family history of other endocrine, nutritional and metabolic diseases, Z83.71 - Family history of colonic polyps, Z86.39 - Personal history of other endocrine, nutritional and metabolic disease Lipid Panel Today E66.9 - Obesity, unspecified, Z00.01 - Encounter for general adult medical examination with abnormal findings, Z13.1 - Encounter for screening for diabetes mellitus, Z13.220 - Encounter for screening for lipoid disorders, Z83.49 - Family history of other endocrine, nutritional and metabolic diseases, Z83.71 - Family history of colonic polyps, Z86.39 - Personal history of other endocrine, nutritional and metabolic disease TSH reflex Free T4 Today E66.9 - Obesity, unspecified, Z00.01 - Encounter for general adult medical examination with abnormal findings, Z13.1 - Encounter for screening for diabetes mellitus, Z13.220 - Encounter for screening for lipoid disorders, Z83.49 - Family history of other endocrine, nutritional and metabolic diseases, Z83.71 - Family history of colonic polyps, Z86.39 - Personal history of other endocrine, nutritional and metabolic disease Influenza [id number] Immunization Today Z23 - Encounter for immunization MM screening mammo BI Today Z12.31 - Encounter for screening mammogram for malignant neoplasm of breast Medications: New flu vacc [id number] 6mos up(PF) 0.5 mL IM ONCE 0.5 mL 0RF Z23 - Encounter for immunization Coding Level of Care Code Est Pt Prev Care 40-64y(25312) Diagnoses Annual visit for general adult medical examination with abnormal findings Z00.01 Cervical cancer screening Z12.4 Family history of thyroid disease Z83.49 Family history of familial adenomatous polyposis Z83.71 Obesity (BMI 35.0-39.9 without comorbidity) E66.9
== END 2023-02-08 13:40 | disposition home or self-care (01) ==
PROVIDERS: PCP Internal Medicine; Visit Provider Internal Medicine
DX: Z00.01 Encounter for general adult medical examination with abnormal findings (principal); Z12.4 Encounter for screening for malignant neoplasm of cervix; Z83.49 Family history of other endocrine, nutritional and metabolic diseases; Z83.71 Family history of colonic polyps; E66.9 Obesity, unspecified; Z68.35 Body mass index [BMI] 35.0-35.9, adult
CPT/HCPCS: 99396

== ENCOUNTER 2023-02-08 13:23 | Outpatient (REF) | payer OTHER, SELFPAY ==
[2023-02-10 22:39] LABS: HPV mRNA E6/E7 rflx Not Detected (Not Detected)
== END 2023-02-08 13:24 | disposition home or self-care (01) ==
LOC: HO.LAB 13:23
PROVIDERS: Visit Provider Internal Medicine
DX: Z12.4 Encounter for screening for malignant neoplasm of cervix (principal); Z11.51 Encounter for screening for human papillomavirus (HPV)
CPT/HCPCS: 87624; 88142

== ENCOUNTER 2023-07-25 10:46 | Emergency (ER) | payer OTHER, SELFPAY ==
--- NOTE | ~2023-07-25 | XR_ITS ---
EXAMINATION: XR SHOULDER, LEFT CLINICAL INFORMATION: Left shoulder pain after injury COMPARISON: None available. TECHNIQUE: AP external rotation, Grashey, scapular Y view of the left shoulder. FINDINGS: The bones and soft tissues are normal. No fracture. Glenohumeral and acromioclavicular alignment is anatomic with normal joint space. No abnormal soft tissue calcifications. XR/XR shoulder LT min 2V IMPRESSION: Normal left shoulder.
--- NOTE | ~2023-07-25 | XR_ITS ---
EXAMINATION: XR CHEST CLINICAL INFORMATION: Chest pain COMPARISON: 06/07/2017 TECHNIQUE: 2 views of the chest were obtained. FINDINGS: No significant abnormality is noted involving the heart, lungs, mediastinum, bony thorax or soft tissues. XR/XR chest 2V IMPRESSION: Unremarkable examination, without interval change.
--- NOTE | 2023-07-25 11:00 | ECG_ITS ---
Test Reason : cp Blood Pressure : / mmHG Vent. Rate : 069 BPM Atrial Rate : 069 BPM P-R Int : 138 ms QRS Dur : 098 ms QT Int : 410 ms P-R-T Axes : 001 012 004 degrees QTc Int : 439 ms Normal sinus rhythm with sinus arrhythmia Normal ECG When compared with ECG of 07-JUN-2017 17:55, Nonspecific T wave abnormality no longer evident in Anterior leads Referred By: Generic ED Physician Electronically Signed By:Maximilian Polanco
[2023-07-25 11:27] VITALS: BP 118/85; PULSE 75; RESP 18; TEMP 36.9; O2SAT 97; BMI 35.3
--- NOTE | 2023-07-25 11:28 | ED.GENADULT ---
HPI - General Adult General Chief complaint: General Medical Stated complaint: l arm pain no inj numbness Time Seen by Provider: 07/25/23 13:08 Source: patient Mode of arrival: ambulatory Limitations: no limitations History of Present Illness HPI narrative: Patient is a 42 year old assigned female at with no reported medical history presenting to the emergency department today with left shoulder pain. Patient states that since March 2023 she has been having left sided shoulder pain. Patient states that ever since donating plasma, she has had chronic issues with the left shoulder. Patient states that last night, it radiated into her chest and that's what prompted her to come in. Patient denies any dizziness, lightheadedness, abdominal pain, nausea, vomiting, fever, chills, blurry vision, double vision, loss of vision, difficulty breathing, shortness of breath, back pain, night sweats, pain with urination, increased urinary frequency, increased urinary urgency, blood in her urine or stool, syncope or a near syncopal episode, recent trauma or falls, bowel incontinence, bladder incontinence, bowel retention, bladder retention, or any other complaints at this time. Onset (ago): month(s) (5) Location: chest, left and upper extremity Related Data Previous Rx's Medication Instructions Recorded cyclobenzaprine 5 mg tablet 5 mg PO TID PRN muscle spasm 7 07/25/23 days #21 tabs Allergies Allergy/AdvReac Type Severity Reaction Status Date / Time Sulfa (Sulfonamide Allergy Unknown INFLAMED Verified 02/08/23 13:06 Antibiotics) EYES W/ [SULFA (SULFONAMIDE EYE DROPS ANTIBIOTICS)] , eye swelling PMFSH Past Medical History Medical History (Updated 07/25/23 @ 13:09 by HAILEY Beth) Obesity (BMI 35.0-39.9 without comorbidity) Family history of thyroid disease Family history of familial adenomatous polyposis Family history of pancreatic cancer Anxiety disorder Surgical History Hx of colonoscopy History of section Family History Family History (Updated 02/08/23 @ 13:41 by Sallie Dueñas MD) Father Hyperlipidemia HTN (hypertension) Mother Pancreatitis Adenomatous colon polyp Paternal Grandfather Hyperlipidemia HTN (hypertension) Paternal Grandmother Pancreatic cancer Sister No problems noted. Son No problems noted. Daughter No problems noted. Maternal Grandmother Adenomatous colon polyp Paternal Aunt Pancreatic mass Maternal Aunt Adenomatous colon polyp Social History Social History Household Members: Spouse and Children Housing: House Are you a primary rn progressive care to a significant other at home: No Do you presently have visiting nurse or other home services: No Alcohol intake: current Alcohol intake frequency: holidays/special occasions only Alcohol type: wine Patient Tobacco Use Status: Never used Tobacco e-Cigarette/Vaping Use: Never Used Advance Directives: No Advance Directives Information Provided: No service: No Current occupational status: employed Current occupation: [employer] Cognitive needs: No Hearing needs: No Vision needs: Yes Physical Exam ED Vital Signs: Vital Signs - 24 hr 07/25/23 11:27 Temperature 98.4 F Pulse Rate 75 Respiratory Rate 18 Blood Pressure 118/85 Pulse Oximetry 97 Oxygen Delivery Method Room Air BMI result Body Mass Index 35.3 Const General: cooperative, no acute distress, alert and awake Nutritional Appearance: well nourished Orientation/consciousness: patient oriented x3 Limitations: no limitations HENMT Head: Yes normal to inspection and Yes atraumatic Ears: hearing grossly normal bilaterally and external ears normal General nose exam: Normal external nose present, no nasal discharge noted and no epistaxis Face and sinus: Yes normal facial exam, No abrasion and No laceration Mouth: Normal oral and palatal mucosa present, no drooling and no muffled voice Eyes General: appearance normal, both eyes and all related structures Periorbital: periorbital findings normal Eyelids: Yes eyelids normal Conjunctivae: conjunctivae normal Pupils: Equal, round and reactive pupils present EOM: EOMs intact bilaterally Neck Neck: Yes normal visual inspection, Yes full ROM and Yes no lymphadenopathy Chest Chest palpation & inspection: normal inspection of the chest Resp Effort & Inspection: normal respiratory effort and able to speak in complete sentences GI Inspection: Yes normal to inspection Neuro General: patient oriented x3 and moves all extremities Cranial nerves: Yes Equal, round and reactive pupils present Cognition (Neuro): normal cognition Motor exam (neuro): 5/5 motor strength present throughout Sensory Exam: Normal double simultaneous stimulation for sensation Coordination: [id number] test normal Extrem General: Yes normal to inspection, Yes full ROM and Yes capillary refill normal Psych Appearance: grossly normal Mental Status: mental status grossly normal Affect: normal affect Attitude: cooperative Thought process: Normal thought process present Thought content: Normal thought content present Insight: Good insight present (Psych) Course Course Course Narrative: RME performed by Crystal Collado PA-C. Patient is a 42 year old assigned female at presenting to the emergency department with left shoulder pain that radiates down the arm and into the chest. Patient states it has been like this since March 2023 and has not improved. Detailed physical exam and review of systems are deferred to the wood grinder operator. Labs and imaging ordered. Patient placed back in the waiting room pending room availability and results. Medical Decision Making Medical Decision Making MDM Narrative: Patient is a 42 year old assigned female at with no reported medical history presenting to the emergency department today with left shoulder pain. Patient's physical exam was unremarkable. Patient's blood work was unremarkable. Patient's EKG was unremarkable. Patient's left shoulder and chest x-rays showed no acute process. I explained my physical exam findings as well as all test results to the patient. I answered all questions asked by the patient. I stressed the importance of the patient taking her medication as prescribed. I stressed the importance of the patient following up with her primary care provider and an orthopedic provider. I stressed the importance of the patient returning to the emergency department immediately if her symptoms were to worsen or if she were to develop any dizziness, shortness of breath, difficulty breathing, chest pain, blurry vision, loss of vision, nausea, vomiting, abdominal pain, fever, chills, back pain, or any other complaints. Patient verbalized agreement and understanding with this treatment plan and discharge. Differential Diagnosis Differential Diagnoses: The differential diagnosis associated with the presentation includes Left shoulder pain Chest pain Shoulder strain Cervical radiculopathy Muscle spasm Admission/Observation Consideration of admission/observation: Escalation of care including admission/observation considered Patient would have been admitted to the hospital had her work up had any findings where hospital admission was appropriate and her clinical presentation warranted hospital admission. Lab Data [facility] Lab Attestation statement: I reviewed the patient's lab results. My interpretation of these results are in the [facility] Rationale portion of this note. 07/25/23 11:36 07/25/23 11:36 Labs: Lab Results 07/25/23 Range/Units 11:36 WBC 7.1 (4.8-10.8) X10*3/uL RBC 4.76 (4.20-5.50) X10*6/uL Hgb 15.1 (12.0-16.0) g/dl Hct 42.5 (37.0-47.0) % MCV 89.3 (80.0-98.0) fL MCH 31.7 (27.0-33.0) pg MCHC 35.5 H (31.0-35.0) g/dl RDW 12.0 (11.0-16.0) % Plt Count 272 (160-400) X10*3/uL MPV 9.3 L (9.4-12.3) fL Immature Gran % (Auto) 0.3 (0.0-0.4) % Neut % (Auto) 62.6 (45-73) % Lymph % (Auto) 26.2 (20-40) % [place] % (Auto) 5.9 (2-11) % Eos % (Auto) 4.4 H (0-4) % Baso % (Auto) 0.6 (0-2) % Lymph # (Auto) 1.9 (1.2-4.9) X10*3/uL [place] # (Auto) 0.4 (0.1-1.2) X10*3/uL Eos # (Auto) 0.3 (0.0-0.4) X10*3/uL Baso # (Auto) 0.0 (0.0-0.2) X10*3/uL Abs Immat Gran (auto) 0.02 (0.00-0.03) X10*3/uL Absolute Neuts (auto) 4.4 (2.0-8.3) x10*3/uL Absolute Nucleated RBC 0.000 (0.0-0.012) X10*3/uL Nucleated RBC % (auto) 0.0 (0.0-0.2) /100WBC Sodium 140 (135-145) mmol/L Potassium 3.8 (3.3-5.1) mmol/L Chloride 104 (96-108) mmol/L Carbon Dioxide 29 (22-29) mmol/L Anion Gap 11 L (12-20) BUN 10 (9-16) mg/dL Creatinine 0.70 (0.5-1.4) mg/dL Estim Creat Clear Calc 117.1 Estimated GFR > 60 Random Glucose 87 (60-115) mg/dL Calcium 9.6 (8.4-10.2) mg/dL Magnesium 2.0 (1.6-2.6) mg/dL Total Bilirubin 0.7 (0.0-1.0) mg/dL AST 20 (5-31) U/L ALT 25 (0-31) U/L Alkaline Phosphatase 65 (39-117) U/L Troponin I High Sens < 2.7 (<3.5-17.0) ng/L Total Protein 7.7 (6.5-8.0) g/dL Albumin 4.6 (3.5-5.0) g/dL Beta HCG, Quant < 2 mIU/mL Independent Interpretation I performed an independent interpretation of an: EKG and Plain X-Ray Interpretation: My interpretation is in agreement with the radiologist's impression of these imaging studies. EXAMINATION: XR CHEST CLINICAL INFORMATION: Chest pain COMPARISON: 06/07/2017 TECHNIQUE: 2 views of the chest were obtained. FINDINGS: No significant abnormality is noted involving the heart, lungs, mediastinum, bony thorax or soft tissues. XR/XR chest 2V IMPRESSION: Unremarkable examination, without interval change. Dictated By: Carie Banuelos MD Signed By: Electronically signed by Carie Banuelos MD 07/25/23 1304 EXAMINATION: XR SHOULDER, LEFT CLINICAL INFORMATION: Left shoulder pain after injury COMPARISON: None available. TECHNIQUE: AP external rotation, Grashey, scapular Y view of the left shoulder. FINDINGS: The bones and soft tissues are normal. No fracture. Glenohumeral and acromioclavicular alignment is anatomic with normal joint space. No abnormal soft tissue calcifications. XR/XR shoulder LT min 2V IMPRESSION: Normal left shoulder. Dictated By: Carie Banuelos MD Signed By: Electronically signed by Carie Banuelos MD 07/25/23 1305 Vent. Rate: 069 BPM Atrial Rate: 069 BPM P-R Int: 138 ms QRS Dur: 098 ms QT Int: 410 ms P-R-T Axes: 001 012 004 degrees QTc Int: 439 ms Normal sinus rhythm with sinus arrhythmia Normal ECG When compared with ECG of 07-JUN-2017 17:55, Nonspecific T wave abnormality no longer evident in Anterior leads DD/ 1108 Radiology Impression Discussion of test interpretation with radiology: I have reviewed the radiologist's reading. Prescription Management I considered prescription management with: Pain Medication (patient prescribed pain medication) Discharge Plan Discharge Clinical Impression: Left shoulder pain Patient Disposition: Home, Self-Care Instructions: Heat Pack Application (ED), Shoulder Pain (ED) Additional Instructions: Follow up with your primary care provider and an orthopedic provider. Return to the emergency department immediately if your symptoms worsen or if you develop any dizziness, shortness of breath, difficulty breathing, chest pain, blurry vision, loss of vision, nausea, vomiting, abdominal pain, fever, chills, back pain, or any other complaints. Prescriptions: New cyclobenzaprine 5 mg tablet 5 mg PO TID PRN (Reason: muscle spasm) 7 Days Qty: 21 0RF No Action flu vacc [id number] 6mos up(PF) 60 mcg (15 mcg x 4)/0.5 mL syringe 0.5 ml IM ONCE Qty: 0.5 0RF Referrals: [facility] [place] [facility] [Provider Group] (Call to establish and follow up with an orthopedic provider.) Sallie Dueñas MD [Primary Care Provider] - Print Language: Grenadian
[2023-07-25 11:41] LABS: MANUAL DIFF FLAG NO
[2023-07-25 11:44] LABS: Basophils Percent Auto 0.6 % (0-2); Eosinophils Absolute Auto 0.3 X10*3/uL (0.0-0.4); Eosinophils Percent Auto 4.4 % (0-4); Hematocrit 42.5 % (37.0-47.0); Hemoglobin 15.1 g/dl (12.0-16.0); Imm Gran Abs Auto 0.02 X10*3/uL (0.00-0.03); Imm Gran Pct Auto 0.3 % (0.0-0.4); Lymphocytes Absolute Auto 1.9 X10*3/uL (1.2-4.9); Lymphocytes Percent Auto 26.2 % (20-40); Mean Corpuscular HGB Conc 35.5 g/dl (31.0-35.0); Mean Corpuscular Hemoglobin 31.7 pg (27.0-33.0); Mean Corpuscular Volume 89.3 fL (80.0-98.0); Mean Platelet Volume 9.3 fL (9.4-12.3); Monocytes Absolute Auto 0.4 X10*3/uL (0.1-1.2); Monocytes Percent Auto 5.9 % (2-11); Neutrophils Absolute Auto 4.4 x10*3/uL (2.0-8.3); Neutrophils Percent Auto 62.6 % (45-73); Platelet Count 272 X10*3/uL (160-400); Red Blood Count 4.76 X10*6/uL (4.20-5.50); White Blood Count 7.1 X10*3/uL (4.8-10.8)
[2023-07-25 12:10] LABS: Alanine Aminotransferase 25 U/L (0-31); Albumin Level 4.6 g/dL (3.5-5.0); Alkaline Phosphatase 65 U/L (39-117); Anion Gap 11 (12-20); Aspartate Amino Transferase 20 U/L (5-31); Bilirubin Total 0.7 mg/dL (0.0-1.0); Blood Urea Nitrogen 10 mg/dL (9-16); Calcium 9.6 mg/dL (8.4-10.2); Carbon Dioxide 29 mmol/L (22-29); Chloride 104 mmol/L (96-108); Creatinine Clr Calc Pharmacy 117.1; Estimated Glomerular Filt Rate > 60; Glucose Random 87 mg/dL (60-115); Potassium 3.8 mmol/L (3.3-5.1); Sodium 140 mmol/L (135-145); Total Protein 7.7 g/dL (6.5-8.0)
[2023-07-25 12:19] LABS: HCG Quantitative < 2 mIU/mL; Troponin-I High Sensitivity < 2.7 ng/L (<3.5-17.0)
--- NOTE | 2023-07-25 13:31 | PC.NURSE ---
PT WAS DISCHARGED BY PROVIDER IN TRIAGE
== END 2023-07-25 13:10 | disposition home or self-care (01) ==
PROVIDERS: Physician Assistant Medical; Emergency Provider Emergency Medicine; PCP Internal Medicine
DX: M25.512 Pain in left shoulder (principal); R07.9 Chest pain, unspecified
CPT/HCPCS: 36415; 71046; 73030; 80053; 83735; 84484; 84702; 85025; 93005; 99283

== ENCOUNTER → 2023-07-25 11:00 | Outpatient (BNV) | payer OTHER, SELFPAY | PROVIDERS: Emergency Provider Emergency Medicine; PCP Internal Medicine; Visit Provider Internal Medicine Cardiovascular Disease | DX: R07.9 Chest pain, unspecified (principal) | CPT/HCPCS: 93010 ==

== ENCOUNTER → 2024-01-06 08:45 | Outpatient (BNV) | payer OTHER, SELFPAY | PROVIDERS: PCP Internal Medicine; Visit Provider Radiology Diagnostic Radiology | DX: Z12.31 Encounter for screening mammogram for malignant neoplasm of breast (principal) | CPT/HCPCS: 77063; 77067 ==

== ENCOUNTER 2024-01-06 08:57 | Outpatient (REF) | payer OTHER, SELFPAY ==
--- NOTE | ~2024-01-06 | MM_ITS ---
EXAMINATION: MM SCREENING DIGITAL BREAST TOMOSYNTHESIS, BILATERAL CLINICAL INFORMATION: Screening. Asymptomatic. COMPARISON: Mammography: This study is compared with prior exams dating back to 2021. TECHNIQUE: Digital breast tomosynthesis is performed in both the craniocaudal and mediolateral oblique views along with computer-aided detection (CAD). Synthesized 2D images are generated from the tomosynthesis. FINDINGS: The breasts are heterogeneously dense, which may obscure small masses (ACR BI-RADS breast composition Category c). There are no significant masses, abnormal calcifications, or other abnormalities. MM/MM tomosynthesis screening BI IMPRESSION: No mammographic evidence of malignancy. ASSESSMENT: BI-RADS BI-RADS 1 - Negative RECOMMENDATION: Routine annual mammography screening. 1 year F/U This examination should not preclude the clinical evaluation of a suspicious palpable abnormality. This patient's information was entered into a reminder system with a target due date for their next mammogram. Electronically signed by: Angeline Momin MD 01/17/2024 11:20 AM EDT
== END 2024-01-06 08:58 | disposition home or self-care (01) ==
LOC: HO.MAMMO 08:57
PROVIDERS: PCP Internal Medicine; Visit Provider Internal Medicine
DX: Z12.31 Encounter for screening mammogram for malignant neoplasm of breast (principal)
CPT/HCPCS: 77063; 77067

== ENCOUNTER 2024-01-31 12:00 | Outpatient (REF) | payer OTHER, SELFPAY ==
--- NOTE | ~2024-01-31 | US_ITS ---
EXAMINATION: US SCREENING ULTRASOUND BREAST, BILATERAL CLINICAL INFORMATION: Dense breasts on mammography. Screening ultrasound. COMPARISON: None available. TECHNIQUE: Ultrasound is performed using grayscale imaging and color Doppler. Imaging is performed to include the four quadrants and retroareolar region. Both breasts are imaged. FINDINGS: Right breast: There is no suspicious finding by ultrasound. There is no solid mass or focal architectural abnormality. No abnormal shadowing. No cystic abnormalities. Left breast: There is no suspicious finding by ultrasound. There is no solid mass or focal architectural abnormality. No abnormal shadowing. No cystic abnormalities. US/US breast BI complete IMPRESSION: No suspicious findings on screening breast ultrasound. ASSESSMENT: BI-RADS 1 - Negative RECOMMENDATION: 1 year F/U This patient's information was entered into a reminder system with a target due date for their next mammogram. Electronically signed by: Campos Palm MD 01/31/2024 05:52 PM EDT
== END 2024-01-31 12:01 | disposition home or self-care (01) ==
LOC: HO.MAMMO 12:00
PROVIDERS: PCP Internal Medicine; Visit Provider Internal Medicine
DX: R92.333 Mammographic heterogeneous density, bilateral breasts (principal)
CPT/HCPCS: 76641

== ENCOUNTER → 2024-01-31 12:00 | Outpatient (BNV) | payer OTHER, SELFPAY | PROVIDERS: PCP Internal Medicine; Visit Provider Radiology Diagnostic Radiology | DX: R92.8 Other abnormal and inconclusive findings on diagnostic imaging of breast (principal) | CPT/HCPCS: 76641 ==

== ENCOUNTER 2025-01-27 15:50 | Emergency (ER) | payer OTHER, SELFPAY ==
--- NOTE | 2025-01-27 15:53 | ED_ITS ---
HPI - General Adult General Chief complaint: Skin/Abscess/Foreign Body Stated complaint: scare reopened (from 10yrs ago) Time Seen by Provider: 01/27/25 15:59 Source: patient Mode of arrival: ambulatory Limitations: no limitations History of Present Illness ED Provider: Jaci Whalen APRN HPI narrative: 44 yo female with no PMH here with complaints of surgical site dehiscence noted today. She reports having a c section 10 years ago at [facility]. She did have some issues with wound closure at that time and had a JOSEMANUEL drain for a brief time. She denies fevers, chills, redness, swelling or pain at the site. Related Data Previous Rx's ?Medication ?Instructions ?Recorded cyclobenzaprine 5 mg tablet 5 mg PO TID PRN muscle spa sm 7 07/25/23 days #21 tabs Allergies Allergy/AdvReac Type Severity Reaction Status Date / Time Sulfa (Sulfonamide Allergy Unknown INFLAMED Verified 01/27/25 15:56 Antibiotics) (SULFA EYES W/ (SULFONAMIDE ANTIBIOTICS)) EYE DROPS , eye swelling Review of Systems 2 Review of Systems: Yes all other systems are reviewed and are negative Constitutional: Constitutional: Reports no additional constitutional complaints, Denies body ache(s), Denies chills, Denies fever(s), Denies headache(s) and Denies weakness Eyes: Eyes: Reports no additional eye complaints and Denies change in vision ENT: Reports system reviewed and no additional complaints, except as documented, Denies dizziness, Denies headache(s), Denies nasal congestion, Denies nasal discharge and Denies neck pain Cardiovascular: Cardiovascular: Reports no additional cardiovascular complaints, Denies chest pain, Denies leg edema and Denies dyspnea Respiratory: Respiratory: Reports no additional respiratory complaints, Denies cough and Denies dyspnea Gastrointestinal: Gastrointestinal: Reports no additional gastrointestinal complaints, Denies abdominal pain, Denies diarrhea, Denies nausea and Denies vomiting Genitourinary: Genitourinary: Reports no additional female genitourinary complaints and Denies urinary incontinence Musculoskeletal: Musculoskeletal: Reports no additional musculoskeletal complaints, Denies back pain, Denies arthralgias, Denies joint swelling, Denies neck pain, Denies numbness and Denies tingling Integumentary/Breasts: Skin/Breast: Reports system reviewed and no additional complaints, except as docu, Denies rash and Reports wounds Neurologic: Reports system reviewed and no additional complaints, except as documented, Denies Abnormal speech present, Denies dizziness, Denies headache(s), Denies numbness, Denies tingling and Denies weakness PMFSH Past Medical History Attestation statement: The following information was validated with the patient. Source: old records reviewed and nursing notes reviewed Medical History Heterogeneously dense tissue of both breasts on mammography Obesity (BMI 35.0-39.9 without comorbidity) Family history of thyroid disease Family history of familial adenomatous polyposis Family history of pancreatic cancer Anxiety disorder Surgical History Hx of colonoscopy History of section Family History Family History Father Hyperlipidemia HTN (hypertension) Mother Pancreatitis Adenomatous colon polyp Paternal Grandfather Hyperlipidemia HTN (hypertension) Paternal Grandmother Pancreatic cancer Sister No problems noted. Son No problems noted. Daughter No problems noted. Maternal Grandmother Adenomatous colon polyp Paternal Aunt Pancreatic mass Maternal Aunt Adenomatous colon polyp Social History Social History Household Members: Spouse and Children Housing: House Are you a primary day care home mother to a significant other at home: No Do you presently have visiting nurse or other home services: No Alcohol intake: current Alcohol intake frequency: holidays/special occasions only Alcohol type: wine Patient Tobacco Use Status: Never used Tobacco e-Cigarette/Vaping Use: Never Used Do you have a plan to hurt others: No Plan service: No Current occupational status: employed 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[employer] Cognitive needs: No Hearing needs: No Vision needs: Yes Physical Exam ED Vital Signs: Vital Signs - 24 hr 01/27/25 15:54 Temperature 97.3 F Pulse Rate 73 Respiratory Rate 18 Blood Pressure 129/76 Pulse Oximetry 100 Oxygen Delivery Method Room Air BMI result Body Mass Index 28.2 Const General: cooperative, healthy appearing, comfortable and no acute distress Orientation/consciousness: patient oriented x3 Limitations: no limitations HENMT Head: Yes normal to inspection Ears: hearing grossly normal bilaterally General nose exam: Normal external nose present Face and sinus: Yes normal facial exam Mouth: Normal oral and palatal mucosa present Throat: Yes posterior oropharynx normal Eyes General: appearance normal, both eyes and all related structures Pupils: Equal, round and reactive pupils present Neck Neck: Yes normal visual inspection Chest Chest palpation & inspection: normal inspection of the chest Resp Effort & Inspection: normal respiratory effort Auscultation: clear to auscultation bilaterally Cardio Rate: regular rate Rhythm: regular rhythm Peripheral pulses: Peripheral pulses 2+ throughout GI Inspection: Yes normal to inspection Palpation (GI): Soft to palpation and nontender Auscultation: normal bowel sounds Abdomen image: 2 1. Surgical scar 2. small area of dehiscence. No surrounding erythema, swelling or tenderness. Back/Spine/Pelvis Thoracic/Lumbar Spine: thoracic and lumbar spine normal to inspection Skin General skin exam: no rashes or lesions noted Neuro General: patient oriented x3, no focal motor deficits and normal sensation to monofilament Cranial nerves: Yes Equal, round and reactive pupils present Cognition (Neuro): normal cognition Speech: No Abnormal speech present Gait exam (Neuro): Normal gait present Motor exam (neuro): 5/5 motor strength present throughout Extrem General: Yes normal to inspection Course Course Course Narrative: Jacijacob Whalen [employer] 01/27 5421 This is a rapid medical exam. Deferred additional HPI, ROS, PE to primary provider. 44 yo female with no known medical history here with concern that c section scar is open and weeping, noticed today. This surgery occurred 10 yrs ago. VSS Medical Decision Making Medical Decision Making MDM Narrative: 44 yo female with no PMH here with complaints of surgical site dehiscence noted today. She reports having a c section 10 years ago at [facility]. She did have some issues with wound closure at that time and had a JOSEMANUEL drain for a brief time. She denies fevers, chills, redness, swelling or pain at the site. Small area of dehiscience with no signs/symptoms of abdominal wall celluilitis. Wound care provided. Recommend wound care at home and f/u with PCP outpatient Differential Diagnosis Differential Diagnoses: The differential diagnosis associated with the presentation includes wound dehiscence, abdominal wall cellulitis Discharge Plan Discharge Clinical Impression: Dehiscence of internal surgical incision Patient Disposition: Home, Self-Care Instructions: Wound Dehiscence (ED) Additional Instructions: Keep the wound clean, covered and dry Apply topical antibiotic ointment (over the counter on the area) Avoid rubbing the area with clothes Prescriptions: No Action cyclobenzaprine 5 mg tablet 5 mg PO TID PRN (Reason: muscle spasm) 7 Days Qty: 21 0RF flu vacc [id number] 6mos up(PF) 60 mcg (15 mcg x 4)/0.5 mL syringe 0.5 ml IM ONCE Qty: 0.5 0RF Referrals: Sallie Dueñas MD [Primary Care Provider, Internal Medicine] Print Language: Mauritanian
[2025-01-27 15:54] VITALS: BP 129/76; PULSE 73; RESP 18; TEMP 36.3; O2SAT 100; BMI 28.2
--- NOTE | 2025-01-27 16:14 | PC.NURSE ---
wound cleaned. bacitracin/ABD applied to affected area prior to d/c.
[2025-01-27 16:23] VITALS: BP 129/76; PULSE 73; RESP 18; TEMP 36.3; O2SAT 100
== END 2025-01-27 16:23 | disposition home or self-care (01) ==
PROVIDERS: Emergency Provider Emergency Medicine; PCP Internal Medicine
DX: O90.0 Disruption of cesarean delivery wound (principal)
CPT/HCPCS: 99282; 99283

== ENCOUNTER 2025-02-14 14:14 | Outpatient (AMB) | payer BC, SELFPAY ==
[2025-02-14 14:49] VITALS: BP 100/70; PULSE 78; RESP 16; TEMP 37.1; O2SAT 98; BMI 28.5
--- NOTE | 2025-02-14 14:49 | A.OFFPC_ITS ---
Vital Signs 02/14/25 14:49 Height 5 ft 4 in Weight 166 lb BMI 28.5 BP 100/70 Blood Pressure Location Rt brachial Position Sitting Respiration 16 Pulse 78 Pulse Source Pulse Oximeter Temp 98.8 F Temp Source Oral Pulse Oximetry (%) 98 Oxygen Delivery Method Room Air Intake Visit Reasons: PE- Intake Note: Pt is here today for her PE:last mammogram 01/23/23, papsmear 02/09/23 Allergies Sulfa (Sulfonamide Antibiotics) (SULFA (SULFONAMIDE ANTIBIOTICS)) Allergy (Unknown, Verified 02/14/25 15:21) INFLAMED EYES W/ EYE DROPS , eye swelling Medication List - Last Reconciled 02/14/25 by Sallie Dueñas MD tirzepatide (weight loss) (Zepbound) 10 mg subcut QWEEK Tobacco use date assessed: 02/14/25 Dental Screening Dental Screen Date: 02/14/25 Did you have a dental visit in the last 12 months?: Yes Did you have a dental problem in the last 6 months where you did not have access to dental care?: No Was dental information given to patient?: Patient has dentist HPI PE- HPI Details 44-year-old lady here today for her phys ical exam. She is overdue for her screening mammogram, last done in 2022 with benign findings. Up-to-date with her cervical cancer screening, also done in 2022 with benign findings. [facility] Medical History (Updated 02/14/25 @ 15:33 by Sallie Dueñas MD) Heterogeneously dense tissue of both breasts on mammography Obesity (BMI 35.0-39.9 without comorbidity) Family history of thyroid disease Family history of familial adenomatous polyposis Family history of pancreatic cancer Anxiety disorder Surgical History Hx of colonoscopy History of section Family History Father Hyperlipidemia HTN (hypertension) Mother Pancreatitis Adenomatous colon polyp Paternal Grandfather Hyperlipidemia HTN (hypertension) Paternal Grandmother Pancreatic cancer Sister No problems noted. Son No problems noted. Daughter No problems noted. 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 1. Little interest or pleasure in doing things: not at all 2. Feeling down, depressed, or hopeless: not at all 3. Trouble falling or staying asleep, or sleeping too much: not at all 4. Feeling tired or having little energy: not at all 5. Poor appetite or overeating: not at all 6. Feeling bad about yourself - or that you are a failure or have let yourself or your family down: not at all 7. Trouble concentrating on things, such as reading the newspaper or watching television: not at all 8. Moving or speaking so slowly that other people could have noticed. Or the opposite - being so fidgety or restless that you have been moving around a lot more than usual: not at all 9. Thoughts that you would be better off or of hurting yourself in some way: not at all Total score: 0 Depression Screening Interpretation: Negative Depression Screening Done: Yes 80611 - PHQ-9 Billing: Yes Source: Developed by Drs. James Rodriguez, Farheen Christine, Antoine Curran and colleagues, with an educational jorge from [employer] Thrive Questionnaire Date Thrive assessed: 02/14/25 I am a: Patient What is your living situation today?: I have a steady place to live Within the past 12 months, did the food you bought not last and you didn't have the money to get more?: Never true Within the past 12 months, did you worry whether your food would run out before you got money to buy more?: Never true Do you have trouble paying for medicines?: No Do you have trouble getting transportation to medical appointments?: No Do you have trouble paying your heating and electricity bill?: No Do you have trouble taking care of your child, family member or friend?: No Do you have trouble with day-to-day activities such as bathing, preparing meals, shopping, managing finances, etc.?: No Are you currently unemployed and looking for a job?: No Are you interested in more education?: No Please select the resources that you would like help with: None Currently or been in a relationship where the following occur: No concerns reported THRIVE Score: 0 AUDIT C Alcohol Use Questionnaire (AUDIT-C) 1. How often do you have a drink containing alcohol?: 2-3 times a week 2. How many drinks containing alcohol do you have on a typical day when you are drinking?: 1 or 2 3. How often do you have six or more drinks on one occasion?: Never Total Score: 3 DUARTE-7 AMB Questionnaire DUARTE-7 Date DUARTE - 7 assessed: 02/14/25 Feeling nervous, anxious, or on edge: 0 = Not at all Not being able to stop or control worryin = Not at all Worrying too much about different things: 0 = Not at all Trouble relaxin = Not at all Being so restless that it is hard to sit still: 0 = Not at all Becoming easily annoyed or irritable: 0 = Not at all Feeling afraid as if something awful might happen: 0 = Not at all Total DUARTE-7 score (0-4 normal; 5-9 mild; 10-14 moderate; 15-21 severe): 0 Source: Developed by Drs. James Rodriguez, Farheen Christine, Antoine Curran and colleagues, with an educational jorge from [employer] DUARTE-7 Assessment Billing DUARTE-7 Assessment Tool: DUARTE-7 Assessment 97618 Review of Systems Const Denies body aches, Denies fatigue, Denies fever(s), Denies headache(s), Denies weakness and Reports weight loss (Currently on tirzepatide [facility] [employer]) Eyes Details: Goes to [facility] Denies change in vision ENT Denies dizziness, Denies headache(s), Denies nasal congestion, Denies nasal discharge and Denies sore throat Card Denies chest pain, Denies lightheadedness, Denies palpitations and Denies dyspnea Resp Denies chest congestion, Denies cough, Denies dyspnea and Denies wheezing GI Denies abdominal pain, Denies change in bowel habits and Denies heartburn Denies urinary frequency, Denies dysuria and Denies urinary urgency Musc Reports no additional complaints Skin/Breast Denies lesions and Denies rash Neuro Denies dizziness, Denies headache(s) and Denies weakness Psych Reports as per HPI Endo Denies fatigue, Denies polydipsia, Denies polyuria and Denies palpitations Andre/Lymph Denies easy bruising Aller/Immun Denies seasonal rhinorrhea and Denies wheezing Physical exam (Primary Care) Vital Signs: Last Vital Signs Temp 98.8 F 02/14/25 14:49 Pulse 78 02/14/25 14:49 Resp 16 02/14/25 14:49 BP 100/70 02/14/25 14:49 Pulse Ox 98 02/14/25 14:49 Oxygen Delivery Method Room Air 02/14/25 14:49 BMI result Body Mass Index 28.5 Tobacco/Smoking Status: Tobacco use Status Tobacco use date assessed 02/14/25 02/14/25 14:50 Patient Tobacco Use Status Never used Tobacco 02/14/25 14:50 e-Cigarette/Vaping Use Never Used 02/14/25 14:50 PHQ-9: PHQ-9 Score PHQ-9: Total score 0 02/14/25 15:38 Depression Screening Interpretation: Negative Thrive Assessment: Date of Thrive Assessment Date Thrive assessed 08/26/22 02/14/25 14:50 Currently or been in a relationship where the following occur: No concerns reported Const Other: Alert oriented x3, slight respiratory distress noted him ambulatory normal gait Nutritional Appearance: overweight Orientation/consciousness: patient oriented x3 [facility] Other: Normocephalic atraumatic Ears: hearing grossly normal bilaterally, external ears normal, TM's normal bilaterally and EAC's normal General nose exam: Normal external nose present Face and sinus: Yes face symmetric Mouth: Normal oral and palatal mucosa present and moist mucous membranes Eyes General: appearance normal, both eyes and all related structures Neck Neck: Yes full ROM, Yes no lymphadenopathy and Yes supple Thyroid: Thyroid normal Chest Chest palpation & inspection: normal inspection of the chest Breast/axilla palpation: normal palpation of the breasts Resp Effort & Inspection: normal respiratory effort and able to speak in complete sentences Auscultation: clear to auscultation bilaterally Cardio Other: S1-S2 present regular rate and rhythm GI Inspection: Yes obesity Palpation (GI): Soft to palpation, nontender, no guarding and no masses Auscultation: normal bowel sounds General: Yes no CVA tenderness and Yes deferred Back/Spine/Pelvis Back: no CVA tenderness and No back tenderness Skin General skin exam: no rashes or lesions noted Neuro General: patient oriented x3, gait normal, tone normal, moves all extremities, Normal light touch and pain sensation, no focal motor deficits and CN's II-XI intact bilaterally Extrem General: Yes full ROM, Yes no joint enlargement, Yes no clubbing, cyanosis or edema, Yes no pedal edema, Yes no calf tenderness and Yes normal gait Psych Appearance: grossly normal and well kempt Mental Status: mental status grossly normal Speech and movement: Normal speech and movement present Affect: normal affect Coding Level of Care Code Est Pt Prev Care 40-64y(10574) Diagnoses Family history of thyroid disease Z83.49 Advance directive discussed with patient Z71.89 Annual visit for general adult medical examination with abnormal findings Z00.01 Additional Codes PHQ-9 - 41289 - PHQ-9 Billing: Yes ([id number]) DUARTE-7 Assessment Billing - DUARTE-7 Assessment Tool: DUARTE-7 Assessment 53108 ([id number]) Assessment & Plan Assessment & Plan (1) Family history of thyroid disease: Code(s): Z83.49 - Family history of other endocrine, nutritional and metabolic diseases Category: Medical Plan: Will check TSH with reflex frequent (2) Advance directive discussed with patient: Code(s): Z71.89 - Other specified counseling Plan: Initiated the conversation about Advanced Directives. Advanced Directives help patients prepare for current and future decisions about their medical treatment and place of care. Discussed with patient that it is a process where a patients current condition and prognosis are reviewed, their wishes for information regarding their illness are elicited, and likely medical dilemmas are presented and options discussed. Healthcare proxy form completed today. The form can be amended as needed, reviewed yearly and make changes as needed (3) Annual visit for general adult medical examination with abnormal findings: Code(s): Z00.01 - Encounter for general adult medical examination with abnormal findings Plan: Will check appropriate labs. Recommended dental visit every 6 months and regular eye exams, at least every 2 years. Take adequate calcium in diet and vitamin-D 3 at 2000 IU per cap once a day, in addition to weight-bearing exercises to help maintain good muscle tone and weight control. Instructed to do self-breast exam, and recommended to get yearly mammogram, patient states she will schedule appointment. Up-to-date with her cervical cancer screening. Reminded to get her flu vaccine and updated COVID booster Orders: Orders Aspartate Amino Transferase 02/14/25 Z83.49 - Family history of other endocrine, nutritional and metabolic diseases, Z80.0 - Family history of malignant neoplasm of digestive organs, Z71.89 - Other specified counseling, Z00.01 - Encounter for general adult medical examination with abnormal findings Basic Metabolic Panel Fasting 02/14/25 Z83.49 - Family history of other endocrine, nutritional and metabolic diseases, Z80.0 - Family history of malignant neoplasm of digestive organs, Z71.89 - Other specified counseling, Z00.01 - Encounter for general adult medical examination with abnormal findings TSH reflex Free T4 02/14/25 Z83.49 - Family history of other endocrine, nutritional and metabolic diseases, Z80.0 - Family history of malignant neoplasm of digestive organs, Z71.89 - Other specified counseling, Z00.01 - Encounter for general adult medical examination with abnormal findings Lipid Panel 02/14/25 Z83.49 - Family history of other endocrine, nutritional and metabolic diseases, Z80.0 - Family history of malignant neoplasm of digestive organs, Z71.89 - Other specified counseling, Z00.01 - Encounter for general adult medical examination with abnormal findings Vitamin D 25-OH Total 02/14/25 Z83.49 - Family history of other endocrine, nutritional and metabolic diseases, Z80.0 - Family history of malignant neoplasm of digestive organs, Z71.89 - Other specified counseling, Z00.01 - Encounter for general adult medical examination with abnormal findings Alanine Aminotransferase 02/14/25 Z83.49 - Family history of other endocrine, nutritional and metabolic diseases, Z80.0 - Family history of malignant neoplasm of digestive organs, Z71.89 - Other specified counseling, Z00.01 - Encounter for general adult medical examination with abnormal findings Complete Blood Count Auto Diff 02/14/25 Z83.49 - Family history of other endocrine, nutritional and metabolic diseases, Z80.0 - Family history of malignant neoplasm of digestive organs, Z71.89 - Other specified counseling, Z00.01 - Encounter for general adult medical examination with abnormal findings
== END 2025-02-14 15:43 | disposition home or self-care (01) ==
PROVIDERS: PCP Internal Medicine; Visit Provider Internal Medicine
DX: Z83.49 Family history of other endocrine, nutritional and metabolic diseases (principal); Z71.89 Other specified counseling; Z00.01 Encounter for general adult medical examination with abnormal findings

== ENCOUNTER → 2025-02-14 14:14 | Outpatient (BNVA) | payer SELFPAY | PROVIDERS: PCP Internal Medicine; Visit Provider Internal Medicine | DX: Z00.01 Encounter for general adult medical examination with abnormal findings (principal); Z71.89 Other specified counseling; Z83.49 Family history of other endocrine, nutritional and metabolic diseases | CPT/HCPCS: 96127 ==